=== PATIENT | female | born 1990 | race Caucasian/White ===

== ENCOUNTER 2024-05-06 14:37 | Outpatient (RCR) | payer BC, SELFPAY ==
--- NOTE | 2024-05-06 17:10 | CTCCONSULT_ITS ---
[facility] [address] [place], [place] [address] Consultation Note Date: 05/06/2024 MR#: [id number] Name: NAOMI KILLIAN : 1990 Dx: C73 Malignant neoplasm of thyroid gland Attending physician. Boy Craig MD Reason for consultation. Patient with thyroid carcinoma status post total thyroidectomy referred to the cancer treatment center History of Present Illness: Patient is a 33-year-old lady with right thyroid mass with underwent FNA revealed follicular cells features with nuclear atypia. Subsequent studies suggested likely oncogenic. On 08/30/[address] [facility] [address] Peter Canales performed total thyroidectomy, right lobe with noninvasive follicular thyroid neoplasm with papillary like nuclear features 5 cm. 0 of 2 parathyroid lymph nodes negative for mets. Surgical margins appeared completely excised. Left lobe( 2 foci) 1 focus of classic subtype papillary 1 cm extrathyroid extension absent surgical margins focally involved 2nd focus follicular variant of papillary thyroid with minimal capsular invasion 1 cm size extrathyroidal ext ension absent surgical margin uninvolved. Dr. Aquino has been managing her thyroid medications since her surgery. Staging is pT1a(m) pN0. Past Medical History: History of allergies depression breast augmentation Family history. 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 Lives in [facility] social drinker non-smoker Review of Systems: Has experienced unusual vaginal bleeding Physical Exam: General: Well-appearing lady no acute distress HEENT: Well-healed scar low neck. No adenopathy Assessment: 1. 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 Total thyroidectomy performed [facility] 08/30/2023. 4. The left lobe has the true cancer, and the small size and lack of any other aggressive features not likely to benefit from radioactive iodine.( NCCN, UP TO DATE ) 5. Surveillance is certainly needed and I will now order ultrasound of the thyroid region along with checking for thyroglobulin thyroid antibodies. 6. Patient is being followed by volcanology teacher who may have already ordered these labs which I will check for. 7. Will see her for follow up in 2 months 8. Thank you very much for allowing me to evaluate and manage this patient. Cc: Kiara Brunson MD Electronically signed by: Gene De Guzman MD, DABR 05/06/2024 5:08 PM
== END 2024-05-18 23:59 | disposition home or self-care (01) ==
LOC: SCTC 14:37
PROVIDERS: PCP Internal Medicine Endocrinology, Diabetes & Metabolism; Referring Provider Internal Medicine Endocrinology, Diabetes & Metabolism; Visit Provider Radiology Therapeutic Radiology
DX: C73 Malignant neoplasm of thyroid gland (principal); E89.0 Postprocedural hypothyroidism
CPT/HCPCS: 99213; G0463

== ENCOUNTER → 2024-06-04 | Outpatient (CLI) | payer BC, SELFPAY ==
--- NOTE | 2024-06-04 11:15 | XR_ITS ---
Examination: Thyroid sonography complete TECHNIQUE: Grayscale sonographic images thyroid lobes Exam date and time: May 1121 hours INDICATIONS: Diagnosis thyroid cancer last year with thyroidectomy, throat pain 2 months. FINDINGS: Right thyroid 2.7 cm No thyroid nodules Absent left thyroid IMPRESSION: No right thyroid nodules
== END | disposition home or self-care (01) ==
LOC: CDIM 11:01
PROVIDERS: PCP Radiology Therapeutic Radiology; Referring Provider Radiology Therapeutic Radiology; Visit Provider Radiology Therapeutic Radiology
DX: C73 Malignant neoplasm of thyroid gland (principal)
CPT/HCPCS: 76536

== ENCOUNTER 2024-07-07 15:07 | Outpatient (RCR) | payer BC, SELFPAY ==
--- NOTE | 2024-07-09 14:17 | CTCFLWUP_ITS ---
[facility] [address] [place], [place] [address] FOLLOW-UP NOTE Date: 07/07/2024 MR#: [id number] Name: NAOMI KILLIAN : Dx: C73 Malignant neoplasm of thyroid gland Identification. Patient with thyroid carcinoma status post total thyroidectomy performed at [facility] 08/30/2023. Pathology Right lobe with noninvasive follicular thyroid neoplasm with papillary nuclear features 5 cm. 0 out of 2 parathyroid lymph nodes negative for mets. Surgical margins appear complete excised. Left lobe 2 foci: 1 focus of classic subtype papillary 1 cm extrathyroid extension absent surgical margins focally involved 2nd focus follicular variant of papillary thyroid with minimal capsular invasion 1 cm extrathyroid extension absent surgical margins uninvolved. pT1a(m) pN0. Most recent labs TSH elevated 5.70 T3 99 thyroglobulin antibody less than 1.0 reportedly on 175 mcg Synthroid being followed by rehabilitation aide/scheduler. Ultrasound 06/04/2024 right thyroid 2.7 cm absent left thyroid. Patient not having any problems with the swallowing and no palpable neck mass felt. Will check CT of the neck with contrast with thyroglobulin antibodies and thyroglobulin and see patient back in 2 months. Electronically signed by: Gene De Guzman M.D. 07/07/2024 3:55 PM
== END 2024-07-18 23:59 | disposition home or self-care (01) ==
LOC: SCTC 15:07
PROVIDERS: PCP Family Medicine; Referring Provider Radiology Therapeutic Radiology; Visit Provider Radiology Therapeutic Radiology
DX: C73 Malignant neoplasm of thyroid gland (principal); E89.0 Postprocedural hypothyroidism
CPT/HCPCS: 99213; G0463

== ENCOUNTER → 2024-08-10 | Outpatient (CLI) | payer BC, SELFPAY ==
--- NOTE | 2024-08-10 15:00 | XR_ITS ---
Examination: CT soft tissue neck, with intravenous contrast. 2-D coronal reconstructions. 2-D sagittal reconstructions. Date and time of exam :August 10, 2024 1601 hours INDICATIONS: Diagnosis malignant neoplasm thyroid gland surgery August 2023. CTDI: vol (mGy):14 DLP: (mGycm):390 Technique: 1.25 mm axial sections of the neck of the obtained. Coronal and sagittal reconstructions have been obtained. Intravenous contrast administered C Isovue 370. Low dose protocols were performed. One or more of the following dose reduction techniques were used; automated exposure control, adjustment of the mA and/or KV according to patient size, use of iterative reconstruction technique. Findings: The nasopharynx and oropharynx Bilateral carotid triangle lymph nodes, the largest on the left side 14 mm Symmetrical submandibular glands The larynx appears normal Minimal right thyroid tissue axial image 51, measuring 10 mm No mass impinging upon the trachea Normal epiglottis Lung apices clear Posterior osteophyte formation C5-C6 IMPRESSION: Bilateral carotid triangle lymph nodes, the largest on the left side 14 mm, consider 3 month follow-up ultrasound soft tissue neck Apparent minimal residual thyroid tissue on the right, measuring 10 mm
[2024-08-10 15:26] LABS: HCG Qualitative,Urine Negative
== END | disposition home or self-care (01) ==
PROVIDERS: PCP Family Medicine; Referring Provider Radiology Therapeutic Radiology; Visit Provider Radiology Therapeutic Radiology
DX: C73 Malignant neoplasm of thyroid gland (principal); Z32.00 Encounter for pregnancy test, result unknown
CPT/HCPCS: 70491; 81025; A4649; Q9967

== ENCOUNTER 2024-09-08 14:04 | Outpatient (RCR) | payer BC, SELFPAY ==
--- NOTE | 2024-09-08 14:58 | CTCFLWUP_ITS ---
[facility] [address] [place], [place] [address] FOLLOW-UP NOTE Date: 09/08/2024 MR#: [id number] Name: NAOMI KILLIAN : 1990 Dx: C73 Malignant neoplasm of thyroid gland Identification. Patient with thyroid carcinoma status post total thyroidectomy for the [facility] 08/30/2023 Dr. Canales. A. Right lobe nodule noninvasive follicular thyroid neoplasm with papillary like nuclear features 5 cm. Surgical margins negative. 2 perithyroidal lymph nodes negative for mets 0 out of 2 B. . 1 cm papillary thyroid carcinoma extrathyroid extension absent surgical margins focally involved. Another focus circumscribed follicular variant papillary carcinoma with minimal capsular invasion. Size 1 cm extrathyroidal extension absent surgical margins uninvolved. AJCC pT1a(m) pN0 Ultrasound 06/04/2024 Right thyroid 2.[address] 08/10/2024 bilateral carotid triangle lymph nodes largest on left side 14 mm. Apparent minimal residual thyroid tissue on the right measuring 10 mm. Consider 3-month follow-up ultrasound soft tissue neck. Most recent labs 09/07/2024 CBC CMP unremarkable with calcium 9.4 Thyroglobulin 0.6 thyroglobulin antibody less than 1.0 TSH 5.78 (0.45-4.5) T4 1.55 (0.82 ? 1.77) T3 99 (71-180) Patient taking thyroid medication under packer direction. A#1. Stage I differentiated thyroid carcinoma status post total thyroidectomy 08/30/2023 [facility]. A#2. CT and ultrasound shows possible adenopathy. A #3. Repeat ultrasound as recommended will be ordered in October. A#4. Lockstitch Front Maker Dr Nai Brunson who will see her tomorrow adjusting her thyroid medications. Cc: Brian Brunson MD Electronically signed by: Gene De Guzman M.D. 09/08/2024 2:55 PM
== END 2024-09-17 23:59 | disposition home or self-care (01) ==
LOC: SCTC 14:04
PROVIDERS: PCP Family Medicine; Referring Provider Family Medicine; Visit Provider Radiology Therapeutic Radiology
DX: C73 Malignant neoplasm of thyroid gland (principal); E89.0 Postprocedural hypothyroidism; Z79.890 Hormone replacement therapy; R59.0 Localized enlarged lymph nodes
CPT/HCPCS: 99213; G0463